=== PATIENT | female | born 1940 | race Hispanic/Latino ===

== ENCOUNTER 2018-11-24 14:13 | Outpatient (CLI) | payer MEDICARE ==
--- NOTE | 2018-11-24 16:25 | XRay Report ---
XRAY BILATERAL HIPS AND AP PELVIS THREE VIEWS AND RIGHT FEMUR 2 VIEWS: 11/24/18 CLINICAL: Bilateral hip pain. Known bone metastases. No comparison imaging. FINDINGS: Moderate osteopenia. Right hip and femur: No fracture or dislocation. A lytic lesion of the medial proximal femoral cortex measures at least 2 cm in length. A second lesion of the lateral distal femoral cortex.Mild arthritis. Left hip: No fracture or dislocation.Mild arthritis.Normal soft tissues. The pelvic bones are intact.Normal SI joints. IMPRESSION: Right femoral metastases. No fracture or impending fracture. Mild bilateral hip arthritis.
== END 2018-11-24 14:14 | disposition home or self-care (01) ==
LOC: SPVIMAG 14:13
PROVIDERS: ATTEND Internal Medicine Hematology & Oncology
DX: M13.852 Other specified arthritis, left hip (principal); M13.851 Other specified arthritis, right hip; C79.51 Secondary malignant neoplasm of bone
CPT/HCPCS: 73521